=== PATIENT | male | born 1945 | race Caucasian/White ===

== ENCOUNTER 2021-01-15 18:28 | Inpatient (IN) | payer MEDICARE ==
[~2021-01-15] VITALS: Ht 170.2 cm; Wt 81.5 kg
--- NOTE | 2021-01-15 18:51 | NUR ---
PT BIB AMBULANCE FROM [facility] FOR N/V/D. PT REPORTS VOMITING ONCE YESTERDAY AND DIARRHEA FOR ONE WEEK WITH ABOUT 3 EPISODES PER DAY. PT DENEIS PAIN BUT ABDOMEN IS DIFFUSELY TENDER. PT RECEIVED INSULIN AND CEFRIAXONE(2 GRAMS) MANAGER LAUNDRY. BC WERE DONE MANAGER LAUNDRY. PT ON MONITOR.
--- NOTE | 2021-01-15 19:01 | NUR ---
REPORT TO JOHN PERDUE
[2021-01-15 19:41] LABS: PH, VENOUS 7.326 pH (7.320-7.420)
--- NOTE | 2021-01-15 19:48 | NUR ---
Girlfriend/ (Elina Hendricks) [phone]
[2021-01-15 19:51] LABS: ACETONE, SERUM Moderate(40mg/dL) (Negative)
[2021-01-15 19:54] LABS: ALBUMIN 2.1 g/dL (3.4-5.0); ANION GAP 22 mmol/L (5-15); CHLORIDE 86 mmol/L (98-107)
[2021-01-15] MEDS ORDERED: SODIUM CHLORIDE 0.9% 1,000ML IVBOLUS ONE (20:30)
[2021-01-15] MEDS ORDERED: REGULAR INSULIN 100 UNITS in SODIUM CHLORIDE 0.9% 99 ML IV PRN ×2 (20:30→22:00)
--- NOTE | 2021-01-15 20:47 | NUR ---
Insulin drip not initiated yet at this time due to proctocol not being specified by ED MD Cote. I spoke w/ ED MD Cote [id number] and requested protocol specific orders to be put in place. Stated she would talk to Hospitalist and get a protocol placed.
[2021-01-15] MEDS ORDERED: SODIUM BICARBONATE 8.4% 75 MEQ in SODIUM CHLORIDE 0.45% 1,000 ML IV SCH (21:30)
[2021-01-15] MEDS ORDERED: ONDANSETRON 2MG/ML, 2ML IVPush PRN (21:30)
[2021-01-15] MEDS: REGULAR INSULIN 100 UNITS in SODIUM CHLORIDE 0.9% 99 ML IV PRN ×2 (21:37→22:29)
--- NOTE | 2021-01-15 21:48 | NUR ---
Updated Dr. Campbell and hospitalist MD that RN unable to insert Wild Cath as ordered. Pt foreskin red, tender, not able to fully be retracted to visualize urinary meatus. Attempted insertion w/ severe resistance and blood return with minimal clots. No urine assessed in wild cath tube. Verbal instructed by Hospitalist team to cease efforts and stats US abdomen/retropirtoneal would be ordered. Insulin drip started, verified double with RN's.
--- NOTE | 2021-01-15 22:03 | NUR ---
Spoke w/ Dr. Donald at bedside. Updated her once again [id number] that wild cath unable to be inserted due to inability to visualize urinary meatus. I personally showed Dr. Dnoald pts penile anatomy and she concurred at this point, not safe to try to attempt Wild Cath placement. She stated that she would contact Urology. US at bedside, Insulin drip running. Per Dr. Donald, hold Sodium Bicarb fluids at this time, due to risk of volume overloading patient, as pt has full bladder approx 1600ML on US via [email or web address] tech.
--- NOTE | 2021-01-15 22:28 | NUR ---
BGL 550
--- NOTE | 2021-01-15 23:00 | NUR ---
Dr. Richter, Urologist, at bedside attempting to insert urinary catheter.
[2021-01-15] MEDS ORDERED: HEPARIN 5,000 UNITS/ML, 1ML ONE (23:03)
[2021-01-15] MEDS ORDERED: METRONIDAZOLE PMX 500MG/100ML 100 ML ONE (23:03)
[2021-01-15] MEDS: CEFTRIAXONE 1,000 MG in DEXTROSE 5% 50 ML IVPB SCH (23:18)
[2021-01-15] MEDS: HEPARIN 5,000 UNITS/ML, 1ML SQ SCH (23:18)
--- NOTE | 2021-01-15 23:54 | NUR ---
16 F Warren placed by Urologist at this time. 1600Ml cloudy, blood tinged urine returned.
[2021-01-15] MEDS: METRONIDAZOLE PMX 500MG/100ML 100 ML IV SCH (23:59)
--- NOTE | 2021-01-16 00:30 | NUR ---
Most recent BGL 404. Per Dr. Donald, insulin drip to remain at 10.2/hr at this time. Also updated Dr. Donald face to face of pts new onset shivering, tachypenia (RR 26-30) and pts HR of 140-150 when previously throughout shift, 110-120. Pts oral temp 98.2 Per MD, no further interventions at this time, as these are suspected findings due to pts sepsis.
[2021-01-16] MEDS ORDERED: ACETAMINOPHEN 325 MG TABLET ONE (00:57)
[2021-01-16] MEDS: ACETAMINOPHEN 325 MG TABLET PO PRN (01:00)
--- NOTE | 2021-01-16 01:05 | NUR ---
Pt pre medicated w/ Tylenol 650 PO, tolerated well. Pt continues to have shivering, pt putting out more bloody output from wild. Spoke w/ Dr. Donald face to face and requested stat CBC be ordered. Okay for verbal for stat CBC. Ordered at this time. Will continue to monitor pt. Next BGL 0130am. Pt remains on Insulin drip and Bicarb drip/fluids.
--- NOTE | 2021-01-16 01:30 | NUR ---
BGL 325
[2021-01-16 01:34] LABS: MEAN CORPUSCULAR HEMOGLOBIN 29.2 pg (27.5-34.5); MEAN CORPUSCULAR HGB CONC 33.8 g/dL (33.2-36.2); PLATELET COUNT 439 x10^3/uL (130-400); RED BLOOD COUNT 4.46 x10^6/uL (4.38-5.82); RED CELL DISTRIBUTION WIDTH 13.7 % (9.4-14.8)
[2021-01-16 01:36] LABS: MICROSCOPIC INDICATED
--- NOTE | 2021-01-16 01:38 | NUR ---
CBC sent to lab at this time
[2021-01-16 01:40] LABS: SODIUM,URINE RANDOM 85 mmol/L
[2021-01-16 01:49] LABS: TOTAL PROTEIN,URINE RANDOM 2370 mg/dL (0-12)
[2021-01-16 01:55] LABS: CREATININE,URINE RANDOM < 13.00 mg/dL
--- NOTE | 2021-01-16 02:01 | NUR ---
Pt had extremely large bowle movement, incontinent of stool. Diarrhea, mucousy, dark brown. Pt more lethargic, more altered at this point. Hard to arouse, able to maintain however, however mental status acutely worsening. Will update Hospitalist MD [id number]
[2021-01-16 02:03] LABS: BAND#(MANUAL) 2.56 x10^3/uL; BANDS%(MANUAL) 12 % (0-7); LYMPH#(MANUAL) 1.07 x10^3/uL (1-3.4); LYMPHS% (MANUAL) 5 % (22-44); METAMYELOCYTES# (MANUAL) 0.85 x10^3/uL (0-0); METAMYELOCYTES% (MANUAL) 4 % (0-1); MONOS#(MANUAL) 2.13 x10^3/uL (0.3-2.7); MONOS% (MANUAL) 10 % (2-9); MYELOCYTES# (MANUAL) 0.21 x10^3/uL (0-0); MYELOCYTES% (MANUAL) 1 % (0-0); SEG#(MANUAL) 14.48 x10^3/uL (1.8-6.8); SEGS% (MANUAL) 68 % (42-75)
[2021-01-16 02:04] LABS: <PLATELET ESTIMATE> INCREASED; CRENATED 1+; ECHINOCYTES 1+; LARGE PLATELETS 1+; PMNS WITH VACUOLES 1+; TOXIC GRAN 1+
[2021-01-16 02:05] LABS: ANISOCYTOSIS 1+
--- NOTE | 2021-01-16 02:09 | NUR ---
Called Dr. Forrester emergently for pt becoming more altered and w/ SNP <90 at this time. 1L nSS hung at this time, Dr. Das in agreement with this. States he will be down to see the pt shortly.
--- NOTE | 2021-01-16 02:14 | NUR ---
Dr. Das to bedside. No IV pressors at this time. 1L nSS to be hung wide open, Bicarb drip increased from 125 to 200/hr per MD Das. Cont to monitor BP in response to IV fluids. Will reassess the need for Central Line/Vasopressors shortly.
--- NOTE | 2021-01-16 02:18 | NUR ---
Called lab, spoke w/ Amanda, she will add on the ordered labs.
[2021-01-16] MEDS ORDERED: SODIUM CHLORIDE 0.9% 1,000ML IVBOLUS ONE (02:30)
--- NOTE | 2021-01-16 02:36 | NUR ---
Called and left Dr. Forrester message regarding pts most recent BGL of 260 while on Insulin drip at 10.2ml/hr. Questioning whether or not to drop the rate. Also advised Dr. Das that pts BP is responding well to IVF at this time, and that his SBP >90 at this point[address] Also made Dr. Das aware that I ordered the labs that he verbally asked me to order at bedside.
--- NOTE | 2021-01-16 02:40 | NUR ---
Per Dr. Forrester, insulin drip to be maintained at this point in time.
--- NOTE | 2021-01-16 03:11 | NUR ---
TASK RN: PT REPOSITIONED TO COMFORT LIGHTS DIMMED. PT RESTING ON BENNYRRADHA NADN NO FURTHER NEEDS
[2021-01-16 03:13] LABS: ANION GAP 15 mmol/L (5-15); CHLORIDE 92 mmol/L (98-107); CREATININE 7.15 mg/dL (0.7-1.3)
[2021-01-16] MEDS ORDERED: SODIUM BICARBONATE 8.4% 150 MEQ in DEXTROSE 5% 1,000 ML IV SCH (03:30)
[2021-01-16 03:38] LABS: CALCIUM 5.6 mg/dL (8.5-10.1)
--- NOTE | 2021-01-16 03:40 | NUR ---
Critical labs communicated to this RN Potassium 2.3 Calcium 5.6
--- NOTE | 2021-01-16 03:45 | NUR ---
Left Dr. Starr voicemail regardin critical lab results and most recent glucose
--- NOTE | 2021-01-16 03:47 | NUR ---
Per Dr. Das, Insulin drip to be cut in half at this time until D5 fluids arrive from Pharmacy.
[2021-01-16] MEDS ORDERED: SODIUM BICARBONATE 8.4% 150 MEQ, POTASSIUM CHLORIDE 40 MEQ in DEXTROSE 5% 1,000 ML IV SCH (04:00)
[2021-01-16] MEDS ORDERED: CALCIUM GLUCONATE 9.2 MEQ in SODIUM CHLORIDE 0.9% 100 ML IV ONE (04:00)
[2021-01-16 04:19] LABS: MEAN CORPUSCULAR HEMOGLOBIN 28.5 pg (27.5-34.5); MEAN CORPUSCULAR HGB CONC 33.7 g/dL (33.2-36.2); MEAN PLATELET VOLUME 8.7 fL (7.4-10.4); PLATELET COUNT 502 x10^3/uL (130-400); RED BLOOD COUNT 4.21 x10^6/uL (4.38-5.82); RED CELL DISTRIBUTION WIDTH 13.9 % (9.4-14.8)
[2021-01-16 04:26] LABS: ALANINE AMINOTRANSFERASE 11 U/L (12-78); ALBUMIN 1.7 g/dL (3.4-5.0); ANION GAP 20 mmol/L (5-15); CALCIUM 7.7 mg/dL (8.5-10.1); CHLORIDE 98 mmol/L (98-107); CREATININE 9.97 mg/dL (0.7-1.3)
[2021-01-16] MEDS: NOREPINEPHRINE 8 MG in SODIUM CHLORIDE 0.9% 242 ML IV PRN ×3 (04:32→21:57)
--- NOTE | 2021-01-16 04:35 | NUR ---
Updated Dr. Das that peripheral Levo started at this time due to pts continued hypotension. SBP <[address] Das coming to bedside and will advise on what to do with insulin drip. pt remains on insulin drip at 5.1ml/hr at this time. pt additionally receiving Sodium bicarb/potassium in D5 at 175/hr per order and calcium gluconante. Supplies for central line set up at bedside at this time, per Dr. Das. Will assist in central line placement upon arrival.
[2021-01-16 04:37] LABS: ALKALINE PHOSPHATASE 83 U/L (45-117); BILIRUBIN,TOTAL 0.2 mg/dL (0.2-1.0); TOTAL PROTEIN 5.8 g/dL (6.4-8.2)
[2021-01-16 04:48] LABS: ANISOCYTOSIS 1+; BAND#(MANUAL) 7.41 x10^3/uL; BANDS%(MANUAL) 26 % (0-7); LYMPH#(MANUAL) 0.29 x10^3/uL (1-3.4); LYMPHS% (MANUAL) 1 % (22-44); METAMYELOCYTES# (MANUAL) 0.86 x10^3/uL (0-0); METAMYELOCYTES% (MANUAL) 3 % (0-1); MONOS#(MANUAL) 3.14 x10^3/uL (0.3-2.7); MONOS% (MANUAL) 11 % (2-9); MYELOCYTES# (MANUAL) 0.29 x10^3/uL (0-0); MYELOCYTES% (MANUAL) 1 % (0-0); SEG#(MANUAL) 16.53 x10^3/uL (1.8-6.8); SEGS% (MANUAL) 58 % (42-75)
[2021-01-16 04:49] LABS: ECHINOCYTES 1+
[2021-01-16 04:50] LABS: <PLATELET ESTIMATE> INCREASED; LARGE PLATELETS 1+; PMNS WITH VACUOLES 1+
--- NOTE | 2021-01-16 05:10 | NUR ---
Successful placement of RIJ Triple Lumen CVC by Dr. Das. Bllod return noted of all 3 lines, flushes well w/o difficulty
[2021-01-16] MEDS ORDERED: DEXTROSE 10%, 1,000ML IVPB SCH (05:30)
--- NOTE | 2021-01-16 05:38 | NUR ---
Per Dr. Das, Insulin drip to remain at 5.1ml/hr. D10 that is ordered is suppose to be started at this time w/goal BGL 180-200 per .
[2021-01-16] MEDS ORDERED: HEPARIN 5,000 UNITS/ML, 1ML ONE (05:43)
[2021-01-16] MEDS ORDERED: METRONIDAZOLE PMX 500MG/100ML 100 ML ONE (05:43)
[2021-01-16] MEDS: HEPARIN 5,000 UNITS/ML, 1ML SQ SCH ×3 (05:48→21:53)
[2021-01-16] MEDS: METRONIDAZOLE PMX 500MG/100ML 100 ML IV SCH ×3 (05:48→21:53)
[2021-01-16] MEDS ORDERED: DEXTROSE 10% 1,000 ML IV SCH ×2 (06:00)
--- NOTE | 2021-01-16 06:21 | NUR ---
Pt resting at this time, drips maintained at current rate reflected in MAR. SBP >90 on Levophed through pts central line. Respirations even, unlabored, on supplemental O2 via NC at 2lpm for comfort measures and not hypoxia. Pt wild catheter draining well. Outputs are up to date and charted accordingly. Next BGL at 0630. Pt remains on insulin drip, bicarb w/ electrolytes drip, D10 drip. Tolerating well. Will continue to monitor.
[2021-01-16] MEDS ORDERED: POTASSIUM CHLORIDE 40 MEQ in SODIUM CHLORIDE 0.9% 100 ML IV ONE ×2 (07:00→23:30)
--- NOTE | 2021-01-16 07:04 | NUR ---
Report given to NETTE Marrufo, no further questions at this time. All drip medications gone over face to face at bedside. No questions.
[2021-01-16] MEDS: REGULAR INSULIN 100 UNITS in SODIUM CHLORIDE 0.9% 99 ML IV PRN ×2 (08:32→21:54)
--- NOTE | 2021-01-16 08:38 | NUR ---
SPOKE WITH UROLOGIST RE: RAMON AND DR MAHAN'S REQUEST FOR 3WAY BALDDER IRRIGATION. UROLOGY DOES NOT WANT TO HAVE A 3WAY BOWLES PLACED. UROLOGY REQUESTS THAT NURSING HAND IRRIGATE BOWLES NEEDED.
--- NOTE | 2021-01-16 08:40 | NUR ---
LATE ENTRY FOR 714, DR MAHAN AT BEDSIDE, POC DISCUSSED AND QUESTIONS ANSWERED. DR MAHAN REQUESTED NURSING TO PLACE 3WAY BOWLES. I EXPLAINED THAT UROLOGY PLACED THE CURRENT BOWLES. DR MAHAN REQUESTED NURSING TO CONTACT UROLOGY TO DISCUSS 3 WAY BOWLES IRRIGATION.
--- NOTE | 2021-01-16 08:49 | NUR ---
DR SALGUERO PAGED TO DISCUSS D10 INFUSION RATE
--- NOTE | 2021-01-16 10:33 | NUR ---
BLADDER HAND IRRIGATED USING NS. TOTAL OF 2.5 LITERS WAS USED, 70ML AT A TIME WITH EQUAL AMT OF FLUID WITHDRAWN. PT TOLLERATED WELL. MUTLIPLE LARGE CLOTS REMOVED, IRRIGATION CONTINUED UNTIL DRAINED WAS LIGHT PINK AND CLEAR OF ANY CLOTS. BOWLES THEN PLCED TO D/D +350ML OF PINK UOP NOTED.
--- NOTE | 2021-01-16 10:39 | NUR ---
LATE ENTRY FOR 829, COMPLETE LINEN CHANGE AND SKIN CARE PERFORMED. PT TOLLERATED WELL.
--- NOTE | 2021-01-16 10:40 | NUR ---
PT TOLLERATING SMALL BITS OF ICE CHIPS. LIP MOISTURIZER APPLIED.
--- NOTE | 2021-01-16 10:46 | NUR ---
DR SALGUERO HAS NOT RTD EARLIER PAGE 2ND PAGE PLACED TO DR SALGUERO.
--- NOTE | 2021-01-16 10:54 | NUR ---
PER PHONE CONVERSATION WITH DR SALGUERO. STOP THE D10 INFUSION AND BICARB GTT SHOULD RUN AT 125ML/HR. VERBAL READ BACK.
[2021-01-16 12:07] LABS: ANION GAP 14 mmol/L (5-15); CHLORIDE 102 mmol/L (98-107); CREATININE 8.29 mg/dL (0.7-1.3)
[2021-01-16] MEDS ORDERED: TAMSULOSIN 0.4 MG CAP.ER.24H PO ONE (14:00)
[2021-01-16 18:31] LABS: ANION GAP 10 mmol/L (5-15); CALCIUM 8.3 mg/dL (8.5-10.1); CHLORIDE 105 mmol/L (98-107); CREATININE 5.54 mg/dL (0.7-1.3)
[2021-01-16] MEDS ORDERED: POTASSIUM CHLORIDE 20 MEQ TAB.ER.PRT PO ONE (19:30)
[2021-01-16 22:28] LABS: ANION GAP 7 mmol/L (5-15); CALCIUM 8.1 mg/dL (8.5-10.1); CHLORIDE 107 mmol/L (98-107)
[2021-01-16] MEDS: CEFTRIAXONE 1,000 MG in DEXTROSE 5% 50 ML IVPB SCH (23:17)
[2021-01-17 03:25] LABS: BASOPHILS % (AUTO) 0 % (0-1); EOSINOPHILS % (AUTO) 0 % (1-7); LYMPHOCYTES % (AUTO) 7 % (22-44); MEAN CORPUSCULAR HEMOGLOBIN 29.2 pg (27.5-34.5); MEAN CORPUSCULAR HGB CONC 34.8 g/dL (33.2-36.2); MEAN PLATELET VOLUME 8.3 fL (7.4-10.4); MONOCYTES % (AUTO) 11 % (2-9); NEUTROPHILS % (AUTO) 81 % (42-75); PLATELET COUNT 366 x10^3/uL (130-400); RED BLOOD COUNT 3.48 x10^6/uL (4.38-5.82); RED CELL DISTRIBUTION WIDTH 13.8 % (9.4-14.8)
[2021-01-17 03:33] LABS: ANION GAP 4 mmol/L (5-15); CALCIUM 8.2 mg/dL (8.5-10.1); CHLORIDE 110 mmol/L (98-107); CREATININE 3.32 mg/dL (0.7-1.3)
[2021-01-17] MEDS ORDERED: SODIUM BICARBONATE 8.4% 150 MEQ, POTASSIUM CHLORIDE 40 MEQ in DEXTROSE 5% 1,000 ML IV SCH ×3 (04:00→04:30)
[2021-01-17] MEDS: REGULAR INSULIN 100 UNITS in SODIUM CHLORIDE 0.9% 99 ML IV PRN (05:07)
[2021-01-17] MEDS ORDERED: POTASSIUM CHLORIDE 20 MEQ TAB.ER.PRT PO ONE (05:30)
[2021-01-17] MEDS: HEPARIN 5,000 UNITS/ML, 1ML SQ SCH ×3 (05:41→21:45)
[2021-01-17] MEDS: METRONIDAZOLE PMX 500MG/100ML 100 ML IV SCH ×3 (05:41→21:45)
[2021-01-17] MEDS: SODIUM CHLORIDE 0.9% 1,000 ML IV SCH ×2 (07:00→20:38)
[2021-01-17] MEDS: INSULIN LISPRO 100 UNITS/ML, PEN SQ-INSULIN SCH ×4 (08:10→20:38)
[2021-01-17] MEDS: INSULIN GLARGINE 100 UNITS/ML, PEN SQ-INSULIN SCH ×2 (08:10→20:39)
[2021-01-17] MEDS: POTASSIUM CHLORIDE 20 MEQ TAB.ER.PRT PO SCH ×2 (08:10→16:45)
[2021-01-17] MEDS: TAMSULOSIN 0.4 MG CAP.ER.24H PO SCH (08:11)
[2021-01-17 18:52] VITALS: BP 97/60
[2021-01-17] MEDS: CEFTRIAXONE 1,000 MG in DEXTROSE 5% 50 ML IVPB SCH (22:46)
[2021-01-18 01:20] VITALS: BP 145/83
[2021-01-18 04:56] LABS: BASOPHILS % (AUTO) 0 % (0-1); EOSINOPHILS % (AUTO) 0 % (1-7); LYMPHOCYTES % (AUTO) 15 % (22-44); MEAN CORPUSCULAR HGB CONC 33.9 g/dL (33.2-36.2); MEAN PLATELET VOLUME 8.4 fL (7.4-10.4); MONOCYTES % (AUTO) 9 % (2-9); NEUTROPHILS % (AUTO) 76 % (42-75); PLATELET COUNT 343 x10^3/uL (130-400); RED BLOOD COUNT 3.54 x10^6/uL (4.38-5.82); RED CELL DISTRIBUTION WIDTH 13.7 % (9.4-14.8)
[2021-01-18 05:07] LABS: ALBUMIN 1.6 g/dL (3.4-5.0); CALCIUM 7.9 mg/dL (8.5-10.1); CHLORIDE 106 mmol/L (98-107)
[2021-01-18 05:12] LABS: ALANINE AMINOTRANSFERASE 14 U/L (12-78); ALKALINE PHOSPHATASE 69 U/L (45-117); ANION GAP 7 mmol/L (5-15); BILIRUBIN,TOTAL 0.2 mg/dL (0.2-1.0); CREATININE 1.27 mg/dL (0.7-1.3); TOTAL PROTEIN 5.7 g/dL (6.4-8.2)
[2021-01-18] MEDS: HEPARIN 5,000 UNITS/ML, 1ML SQ SCH ×2 (05:39→13:38)
[2021-01-18] MEDS: METRONIDAZOLE PMX 500MG/100ML 100 ML IV SCH ×3 (05:39→22:11)
[2021-01-18] MEDS: INSULIN GLARGINE 100 UNITS/ML, PEN SQ-INSULIN SCH ×2 (07:45→20:22)
[2021-01-18] MEDS: TAMSULOSIN 0.4 MG CAP.ER.24H PO SCH (07:45)
[2021-01-18] MEDS: INSULIN LISPRO 100 UNITS/ML, PEN SQ-INSULIN SCH ×4 (07:46→20:21)
[2021-01-18 08:41] VITALS: BP 173/94
[2021-01-18] MEDS: SODIUM CHLORIDE 0.9% 1,000 ML IV SCH (09:16)
[2021-01-18 13:17] VITALS: BP 152/80
[2021-01-18] MEDS: LACTATED RINGERS 1,000 ML IV SCH ×2 (13:34→23:21)
[2021-01-18 19:21] VITALS: BP 157/83
[2021-01-18] MEDS: CEFTRIAXONE 1,000 MG in DEXTROSE 5% 50 ML IVPB SCH (23:20)
[2021-01-19 00:14] VITALS: BP 136/73
[2021-01-19 05:13] LABS: MEAN CORPUSCULAR HGB CONC 34.1 g/dL (33.2-36.2); MEAN PLATELET VOLUME 8.2 fL (7.4-10.4); PLATELET COUNT 390 x10^3/uL (130-400); RED BLOOD COUNT 4.01 x10^6/uL (4.38-5.82); RED CELL DISTRIBUTION WIDTH 13.4 % (9.4-14.8)
[2021-01-19 05:38] LABS: ANION GAP 7 mmol/L (5-15); CALCIUM 7.7 mg/dL (8.5-10.1); CHLORIDE 103 mmol/L (98-107); CREATININE 0.97 mg/dL (0.7-1.3)
[2021-01-19 05:46] LABS: BANDS%(MANUAL) 4 % (0-7); EOS% (MANUAL) 1 % (1-7); LYMPH#(MANUAL) 3.58 x10^3/uL (1-3.4); LYMPHS% (MANUAL) 18 % (22-44); METAMYELOCYTES% (MANUAL) 1 % (0-1); MONOS#(MANUAL) 1.39 x10^3/uL (0.3-2.7); MONOS% (MANUAL) 7 % (2-9); SEG#(MANUAL) 13.73 x10^3/uL (1.8-6.8); SEGS% (MANUAL) 69 % (42-75)
[2021-01-19 05:47] LABS: ANISOCYTOSIS 1+; PMNS WITH VACUOLES 1+; POLYCHROMASIA 1+
[2021-01-19 05:48] LABS: <PLATELET ESTIMATE> ADEQUATE; LARGE PLATELETS 1+
[2021-01-19] MEDS: METRONIDAZOLE PMX 500MG/100ML 100 ML IV SCH ×3 (06:03→22:08)
[2021-01-19 07:01] VITALS: BP 130/70
[2021-01-19] MEDS: TAMSULOSIN 0.4 MG CAP.ER.24H PO SCH (07:33)
[2021-01-19] MEDS: INSULIN LISPRO 100 UNITS/ML, PEN SQ-INSULIN SCH ×4 (07:34→20:19)
[2021-01-19] MEDS: INSULIN GLARGINE 100 UNITS/ML, PEN SQ-INSULIN SCH ×2 (07:35→20:20)
[2021-01-19] MEDS: LACTATED RINGERS 1,000 ML IV SCH ×2 (11:05→20:20)
[2021-01-19 13:04] VITALS: BP 110/68
[2021-01-19 21:05] VITALS: BP 130/78
[2021-01-19] MEDS: CEFTRIAXONE 1,000 MG in DEXTROSE 5% 50 ML IVPB SCH (23:08)
[2021-01-20 00:15] VITALS: BP 126/77
[2021-01-20 05:41] LABS: BASOPHILS % (AUTO) 0 % (0-1); EOSINOPHILS % (AUTO) 2 % (1-7); LYMPHOCYTES % (AUTO) 17 % (22-44); MEAN CORPUSCULAR HEMOGLOBIN 29.2 pg (27.5-34.5); MEAN CORPUSCULAR HGB CONC 34.3 g/dL (33.2-36.2); MEAN PLATELET VOLUME 8.9 fL (7.4-10.4); MONOCYTES % (AUTO) 9 % (2-9); NEUTROPHILS % (AUTO) 72 % (42-75); PLATELET COUNT 302 x10^3/uL (130-400); RED BLOOD COUNT 3.53 x10^6/uL (4.38-5.82); RED CELL DISTRIBUTION WIDTH 13.4 % (9.4-14.8)
[2021-01-20 05:48] LABS: CHLORIDE 104 mmol/L (98-107)
[2021-01-20 06:02] LABS: ANION GAP 6 mmol/L (5-15); CALCIUM 7.6 mg/dL (8.5-10.1); CREATININE 0.88 mg/dL (0.7-1.3)
[2021-01-20] MEDS: METRONIDAZOLE PMX 500MG/100ML 100 ML IV SCH ×3 (06:11→22:11)
[2021-01-20] MEDS: INSULIN LISPRO 100 UNITS/ML, PEN SQ-INSULIN SCH ×4 (07:00→20:15)
[2021-01-20 07:27] VITALS: BP 175/93
[2021-01-20] MEDS ORDERED: POTASSIUM CHLORIDE 20 MEQ PACKET PO ONE (07:30)
[2021-01-20 08:33] VITALS: BP 167/81
[2021-01-20] MEDS ORDERED: OMNIPAQUE 350 MG/ML, 150 ML BOTTLE ONE (10:25)
[2021-01-20] MEDS: INSULIN GLARGINE 100 UNITS/ML, PEN SQ-INSULIN SCH ×2 (10:31→20:16)
[2021-01-20] MEDS: TAMSULOSIN 0.4 MG CAP.ER.24H PO SCH (10:31)
[2021-01-20] MEDS: LACTATED RINGERS 1,000 ML IV SCH ×2 (10:32→20:09)
[2021-01-20 12:47] VITALS: BP 181/96
[2021-01-20 18:48] VITALS: BP_SYST 174; BP_SYST 180; BP_DIAS 100; BP_DIAS 95
[2021-01-20] MEDS: CEFTRIAXONE 1,000 MG in DEXTROSE 5% 50 ML IVPB SCH (23:27)
[2021-01-21] VITALS (7 sets, daily range): BP systolic 91–219; BP diastolic 52–117
[2021-01-21] MEDS ORDERED: LABETALOL 5MG/ML, 20ML IVPush ONE (01:30)
[2021-01-21] MEDS: LISINOPRIL 10 MG TABLET PO SCH ×2 (01:35→09:06)
[2021-01-21] MEDS: AMLODIPINE 5 MG TABLET PO SCH ×2 (01:35→09:05)
[2021-01-21] MEDS ORDERED: LABETALOL 5MG/ML, 20ML IVPush PRN (03:30)
[2021-01-21] MEDS: METRONIDAZOLE PMX 500MG/100ML 100 ML IV SCH ×3 (06:14→21:34)
[2021-01-21 06:31] LABS: MEAN CORPUSCULAR HEMOGLOBIN 28.8 pg (27.5-34.5); MEAN CORPUSCULAR HGB CONC 33.4 g/dL (33.2-36.2); MEAN PLATELET VOLUME 9.1 fL (7.4-10.4); PLATELET COUNT 392 x10^3/uL (130-400); RED BLOOD COUNT 4.06 x10^6/uL (4.38-5.82); RED CELL DISTRIBUTION WIDTH 13.4 % (9.4-14.8)
[2021-01-21 06:40] LABS: ANION GAP 10 mmol/L (5-15); CALCIUM 8.1 mg/dL (8.5-10.1); CHLORIDE 100 mmol/L (98-107); CREATININE 0.96 mg/dL (0.7-1.3)
[2021-01-21 07:49] LABS: <PLATELET ESTIMATE> ADEQUATE; <PLT MORPHOLOGY> NORMAL PLT MORPH; ANISOCYTOSIS 1+; LYMPH#(MANUAL) 2.23 x10^3/uL (1-3.4); LYMPHS% (MANUAL) 9 % (22-44); MONOS#(MANUAL) 2.23 x10^3/uL (0.3-2.7); MONOS% (MANUAL) 9 % (2-9); POLYCHROMASIA 1+; SEG#(MANUAL) 20.34 x10^3/uL (1.8-6.8); SEGS% (MANUAL) 82 % (42-75)
[2021-01-21] MEDS: INSULIN GLARGINE 100 UNITS/ML, PEN SQ-INSULIN SCH ×2 (07:59→20:35)
[2021-01-21] MEDS: INSULIN LISPRO 100 UNITS/ML, PEN SQ-INSULIN SCH ×4 (08:00→20:34)
[2021-01-21] MEDS: TAMSULOSIN 0.4 MG CAP.ER.24H PO SCH (09:06)
[2021-01-21] MEDS ORDERED: MAGNESIUM SULFATE PMX 2GM/50ML 50 ML IV ONE (10:00)
[2021-01-21] MEDS ORDERED: POTASSIUM CHLORIDE 20 MEQ TAB.ER.PRT PO ONE (10:00)
[2021-01-21] MEDS: POTASSIUM CHLORIDE 20 MEQ in LACTATED RINGERS 1,000 ML IV SCH (13:07)
[2021-01-21] MEDS: CEFTRIAXONE 1,000 MG in DEXTROSE 5% 50 ML IVPB SCH (22:53)
[2021-01-22 00:26] VITALS: BP 105/68
[2021-01-22] MEDS: POTASSIUM CHLORIDE 20 MEQ in LACTATED RINGERS 1,000 ML IV SCH (03:06)
[2021-01-22] MEDS: METRONIDAZOLE PMX 500MG/100ML 100 ML IV SCH ×3 (05:30→21:47)
[2021-01-22 07:32] VITALS: BP 138/79
[2021-01-22] MEDS: AMLODIPINE 5 MG TABLET PO SCH (08:06)
[2021-01-22] MEDS: INSULIN LISPRO 100 UNITS/ML, PEN SQ-INSULIN SCH ×4 (08:06→20:47)
[2021-01-22] MEDS: TAMSULOSIN 0.4 MG CAP.ER.24H PO SCH (08:06)
[2021-01-22] MEDS: INSULIN GLARGINE 100 UNITS/ML, PEN SQ-INSULIN SCH ×2 (08:06→20:47)
[2021-01-22] MEDS: LISINOPRIL 10 MG TABLET PO SCH (08:06)
[2021-01-22 08:21] LABS: BASOPHILS % (AUTO) 1 % (0-1); EOSINOPHILS % (AUTO) 2 % (1-7); LYMPHOCYTES % (AUTO) 16 % (22-44); MEAN CORPUSCULAR HEMOGLOBIN 28.7 pg (27.5-34.5); MEAN CORPUSCULAR HGB CONC 32.9 g/dL (33.2-36.2); MEAN PLATELET VOLUME 8.6 fL (7.4-10.4); MONOCYTES % (AUTO) 8 % (2-9); NEUTROPHILS % (AUTO) 74 % (42-75); PLATELET COUNT 349 x10^3/uL (130-400); RED BLOOD COUNT 4.04 x10^6/uL (4.38-5.82); RED CELL DISTRIBUTION WIDTH 13.6 % (9.4-14.8)
[2021-01-22 08:30] LABS: ANION GAP 7 mmol/L (5-15); CHLORIDE 101 mmol/L (98-107)
[2021-01-22 08:33] LABS: CREATININE 0.87 mg/dL (0.7-1.3)
[2021-01-22] MEDS ORDERED: POTASSIUM CHLORIDE 20 MEQ TAB.ER.PRT PO ONE (10:00)
[2021-01-22] MEDS ORDERED: MAGNESIUM SULFATE PMX 2GM/50ML 50 ML IV ONE (10:00)
[2021-01-22 13:35] VITALS: BP 104/68
[2021-01-22 19:19] VITALS: BP 131/74
[2021-01-22] MEDS: CEFTRIAXONE 1,000 MG in DEXTROSE 5% 50 ML IVPB SCH (23:04)
[2021-01-23 01:35] VITALS: BP 159/92
[2021-01-23] MEDS: METRONIDAZOLE PMX 500MG/100ML 100 ML IV SCH ×2 (05:31→14:27)
[2021-01-23 05:41] LABS: BASOPHILS % (AUTO) 0 % (0-1); EOSINOPHILS % (AUTO) 1 % (1-7); LYMPHOCYTES % (AUTO) 14 % (22-44); MEAN CORPUSCULAR HEMOGLOBIN 29.1 pg (27.5-34.5); MEAN CORPUSCULAR HGB CONC 33.2 g/dL (33.2-36.2); MEAN PLATELET VOLUME 8.8 fL (7.4-10.4); MONOCYTES % (AUTO) 7 % (2-9); NEUTROPHILS % (AUTO) 78 % (42-75); PLATELET COUNT 369 x10^3/uL (130-400); RED BLOOD COUNT 3.89 x10^6/uL (4.38-5.82); RED CELL DISTRIBUTION WIDTH 14.1 % (9.4-14.8)
[2021-01-23 05:42] LABS: ALBUMIN 2.1 g/dL (3.4-5.0); ANION GAP 8 mmol/L (5-15); CALCIUM 7.6 mg/dL (8.5-10.1); CHLORIDE 103 mmol/L (98-107)
[2021-01-23 05:47] LABS: ALANINE AMINOTRANSFERASE 14 U/L (12-78); ALKALINE PHOSPHATASE 84 U/L (45-117); BILIRUBIN,TOTAL 0.3 mg/dL (0.2-1.0); CREATININE 0.84 mg/dL (0.7-1.3); TOTAL PROTEIN 6.7 g/dL (6.4-8.2)
[2021-01-23 06:43] VITALS: BP 155/99
[2021-01-23] MEDS: INSULIN LISPRO 100 UNITS/ML, PEN SQ-INSULIN SCH ×4 (07:00→20:55)
[2021-01-23 08:20] VITALS: BP 149/90
[2021-01-23] MEDS: AMLODIPINE 5 MG TABLET PO SCH (08:22)
[2021-01-23] MEDS: LISINOPRIL 10 MG TABLET PO SCH (08:22)
[2021-01-23] MEDS: TAMSULOSIN 0.4 MG CAP.ER.24H PO SCH (08:22)
[2021-01-23] MEDS: INSULIN GLARGINE 100 UNITS/ML, PEN SQ-INSULIN SCH ×2 (08:23→20:54)
[2021-01-23 12:26] VITALS: BP 142/85
[2021-01-23 20:47] VITALS: BP 139/86
[2021-01-23] MEDS: CEFTRIAXONE 1,000 MG in DEXTROSE 5% 50 ML IVPB SCH (23:08)
[2021-01-24 01:09] VITALS: BP 147/90
[2021-01-24 07:01] VITALS: BP 123/94
[2021-01-24] MEDS: TAMSULOSIN 0.4 MG CAP.ER.24H PO SCH (08:11)
[2021-01-24] MEDS: AMLODIPINE 5 MG TABLET PO SCH (08:11)
[2021-01-24] MEDS: LISINOPRIL 10 MG TABLET PO SCH (08:12)
[2021-01-24] MEDS: INSULIN GLARGINE 100 UNITS/ML, PEN SQ-INSULIN SCH ×2 (08:13→22:29)
[2021-01-24] MEDS: INSULIN LISPRO 100 UNITS/ML, PEN SQ-INSULIN SCH ×4 (08:13→22:29)
[2021-01-24] MEDS ORDERED: METOPROLOL SUCCINATE 50 MG TAB.ER.24H PO SCH (09:30)
[2021-01-24] MEDS ORDERED: INSULIN LISPRO 100 UNITS/ML, PEN SQ-INSULIN ONE (11:00)
[2021-01-24 13:05] VITALS: BP 113/75
[2021-01-24] MEDS ORDERED: INSULIN LISPRO 100 UNIT/ML, 3ML VIAL SQ-INSULIN ONE (16:30)
[2021-01-24] MEDS ORDERED: LACTATED RINGERS 1,000 ML IVBOLUS ONE (18:00)
[2021-01-24 18:01] LABS: MEAN CORPUSCULAR HEMOGLOBIN 29.1 pg (27.5-34.5); MEAN CORPUSCULAR HGB CONC 32.6 g/dL (33.2-36.2); MEAN PLATELET VOLUME 9.2 fL (7.4-10.4); PLATELET COUNT 602 x10^3/uL (130-400); RED BLOOD COUNT 4.51 x10^6/uL (4.38-5.82); RED CELL DISTRIBUTION WIDTH 14.8 % (9.4-14.8)
[2021-01-24 18:16] VITALS: BP 110/76
[2021-01-24 18:17] LABS: ALANINE AMINOTRANSFERASE 18 U/L (12-78); ALBUMIN 2.6 g/dL (3.4-5.0); ANION GAP 12 mmol/L (5-15); CALCIUM 8.9 mg/dL (8.5-10.1); CHLORIDE 96 mmol/L (98-107); CREATININE 1.86 mg/dL (0.7-1.3)
[2021-01-24 18:23] LABS: BAND#(MANUAL) 3.76 x10^3/uL; BANDS%(MANUAL) 10 % (0-7); BASOS#(MANUAL) 0.38 x10^3/uL (0-0.1); BASOS% (MANUAL) 1 % (0-1); LYMPH#(MANUAL) 2.63 x10^3/uL (1-3.4); LYMPHS% (MANUAL) 7 % (22-44); METAMYELOCYTES# (MANUAL) 0.38 x10^3/uL (0-0); METAMYELOCYTES% (MANUAL) 1 % (0-1); MONOS#(MANUAL) 1.13 x10^3/uL (0.3-2.7); MONOS% (MANUAL) 3 % (2-9); SEG#(MANUAL) 29.33 x10^3/uL (1.8-6.8); SEGS% (MANUAL) 78 % (42-75)
[2021-01-24 18:26] LABS: <PLATELET ESTIMATE> INCREASED; ANISOCYTOSIS 1+; LARGE PLATELETS 1+; POLYCHROMASIA 1+
[2021-01-24 18:27] LABS: TOXIC GRAN 1+
[2021-01-24 18:32] LABS: ALKALINE PHOSPHATASE 145 U/L (45-117); BILIRUBIN,TOTAL 0.5 mg/dL (0.2-1.0); TOTAL PROTEIN 8.2 g/dL (6.4-8.2)
[2021-01-24 18:33] LABS: TROPONIN I < 0.015 ng/mL (0.000-0.045)
[2021-01-24] MEDS: MEROPENEM 1 GM in SODIUM CHLORIDE 0.9% 100 ML IV SCH (18:49)
[2021-01-24] MEDS ORDERED: GADOTERATE 10 MMOL/20ML SYR ONE (21:24)
[2021-01-24 22:14] LABS: TROPONIN I < 0.015 ng/mL (0.000-0.045)
[2021-01-24 22:32] VITALS: BP 93/60
[2021-01-25 00:07] VITALS: BP 92/55
[2021-01-25 01:14] VITALS: BP 100/65
[2021-01-25] MEDS: MEROPENEM 1 GM in SODIUM CHLORIDE 0.9% 100 ML IV SCH ×2 (02:29→10:08)
[2021-01-25 06:07] LABS: MEAN CORPUSCULAR HEMOGLOBIN 29.4 pg (27.5-34.5); MEAN CORPUSCULAR HGB CONC 33.5 g/dL (33.2-36.2); MEAN PLATELET VOLUME 8.9 fL (7.4-10.4); PLATELET COUNT 485 x10^3/uL (130-400); RED BLOOD COUNT 4.27 x10^6/uL (4.38-5.82); RED CELL DISTRIBUTION WIDTH 14.8 % (9.4-14.8)
[2021-01-25 06:08] LABS: HCT (SEDRATE) 38.1 % (39.2-51.8)
[2021-01-25 06:17] LABS: ALBUMIN 2.4 g/dL (3.4-5.0); ANION GAP 9 mmol/L (5-15); CALCIUM 8.1 mg/dL (8.5-10.1); CHLORIDE 98 mmol/L (98-107)
[2021-01-25 06:22] LABS: ALANINE AMINOTRANSFERASE 15 U/L (12-78); ALKALINE PHOSPHATASE 78 U/L (45-117); BILIRUBIN,TOTAL 0.6 mg/dL (0.2-1.0); CREATININE 2.18 mg/dL (0.7-1.3); TOTAL PROTEIN 7.3 g/dL (6.4-8.2)
[2021-01-25 06:32] LABS: BANDS%(MANUAL) 3 % (0-7); EOS#(MANUAL) 0.27 x10^3/uL (0.0-0.4); EOS% (MANUAL) 1 % (1-7); LYMPH#(MANUAL) 3.18 x10^3/uL (1-3.4); LYMPHS% (MANUAL) 12 % (22-44); MONOS#(MANUAL) 2.92 x10^3/uL (0.3-2.7); MONOS% (MANUAL) 11 % (2-9); SEG#(MANUAL) 19.35 x10^3/uL (1.8-6.8); SEGS% (MANUAL) 73 % (42-75)
[2021-01-25 06:33] LABS: <PLATELET ESTIMATE> INCREASED; ANISOCYTOSIS 1+; LARGE PLATELETS 1+; POLYCHROMASIA 1+
[2021-01-25] MEDS: INSULIN LISPRO 100 UNITS/ML, PEN SQ-INSULIN SCH ×4 (07:53→21:12)
[2021-01-25] MEDS: TAMSULOSIN 0.4 MG CAP.ER.24H PO SCH (07:53)
[2021-01-25 07:54] VITALS: BP 114/77
[2021-01-25] MEDS: INSULIN GLARGINE 100 UNITS/ML, PEN SQ-INSULIN SCH ×2 (10:17→21:13)
[2021-01-25 10:19] LABS: MEAN CORPUSCULAR HEMOGLOBIN 28.2 pg (27.5-34.5); MEAN CORPUSCULAR HGB CONC 32.3 g/dL (33.2-36.2); MEAN PLATELET VOLUME 8.8 fL (7.4-10.4); PLATELET COUNT 412 x10^3/uL (130-400); RED BLOOD COUNT 3.72 x10^6/uL (4.38-5.82); RED CELL DISTRIBUTION WIDTH 14.8 % (9.4-14.8)
[2021-01-25 10:33] LABS: ALANINE AMINOTRANSFERASE 15 U/L (12-78); ALBUMIN 2.1 g/dL (3.4-5.0); ANION GAP 11 mmol/L (5-15); CALCIUM 7.9 mg/dL (8.5-10.1); CHLORIDE 94 mmol/L (98-107); CREATININE 2.16 mg/dL (0.7-1.3)
[2021-01-25 10:36] LABS: ALKALINE PHOSPHATASE 70 U/L (45-117); BILIRUBIN,TOTAL 0.6 mg/dL (0.2-1.0); TOTAL PROTEIN 6.5 g/dL (6.4-8.2)
[2021-01-25 11:02] LABS: BAND#(MANUAL) 0.27 x10^3/uL; BANDS%(MANUAL) 1 % (0-7); LYMPH#(MANUAL) 2.12 x10^3/uL (1-3.4); LYMPHS% (MANUAL) 8 % (22-44); METAMYELOCYTES# (MANUAL) 0.27 x10^3/uL (0-0); METAMYELOCYTES% (MANUAL) 1 % (0-1); MONOS#(MANUAL) 1.33 x10^3/uL (0.3-2.7); MONOS% (MANUAL) 5 % (2-9); SEG#(MANUAL) 22.53 x10^3/uL (1.8-6.8); SEGS% (MANUAL) 85 % (42-75)
[2021-01-25 11:03] LABS: <PLATELET ESTIMATE> INCREASED; ANISOCYTOSIS 1+; LARGE PLATELETS 1+; POLYCHROMASIA 1+
[2021-01-25 13:21] VITALS: BP 92/60
[2021-01-25] MEDS ORDERED: LACTATED RINGERS 1,000 ML IVBOLUS ONE (14:30)
[2021-01-25] MEDS: HEPARIN 5,000 UNITS/ML, 1ML SQ SCH (17:19)
[2021-01-25 20:19] VITALS: BP 117/71
[2021-01-25] MEDS: MEROPENEM 1 GM in SODIUM CHLORIDE 0.9% 100 ML IVPB SCH (21:00)
[2021-01-25] MEDS: ACETAMINOPHEN 325 MG TABLET PO PRN (23:12)
[2021-01-26 00:58] VITALS: BP 116/67
[2021-01-26] MEDS: HEPARIN 5,000 UNITS/ML, 1ML SQ SCH ×2 (01:47→07:55)
[2021-01-26 05:50] LABS: BASOPHILS % (AUTO) 0 % (0-1); EOSINOPHILS % (AUTO) 1 % (1-7); LYMPHOCYTES % (AUTO) 11 % (22-44); MEAN CORPUSCULAR HEMOGLOBIN 29.1 pg (27.5-34.5); MEAN CORPUSCULAR HGB CONC 33.7 g/dL (33.2-36.2); MONOCYTES % (AUTO) 9 % (2-9); NEUTROPHILS % (AUTO) 80 % (42-75); PLATELET COUNT 424 x10^3/uL (130-400); RED BLOOD COUNT 3.56 x10^6/uL (4.38-5.82); RED CELL DISTRIBUTION WIDTH 14.5 % (9.4-14.8)
[2021-01-26 06:03] LABS: ALBUMIN 2.1 g/dL (3.4-5.0); ANION GAP 8 mmol/L (5-15); CALCIUM 8.4 mg/dL (8.5-10.1); CHLORIDE 101 mmol/L (98-107)
[2021-01-26 06:07] LABS: ALANINE AMINOTRANSFERASE 12 U/L (12-78); ALKALINE PHOSPHATASE 76 U/L (45-117); BILIRUBIN,TOTAL 0.5 mg/dL (0.2-1.0); CREATININE 1.79 mg/dL (0.7-1.3); TOTAL PROTEIN 6.5 g/dL (6.4-8.2)
[2021-01-26 06:47] VITALS: BP 108/68
[2021-01-26] MEDS: TAMSULOSIN 0.4 MG CAP.ER.24H PO SCH (07:55)
[2021-01-26] MEDS: INSULIN LISPRO 100 UNITS/ML, PEN SQ-INSULIN SCH ×4 (08:01→20:46)
[2021-01-26] MEDS: INSULIN GLARGINE 100 UNITS/ML, PEN SQ-INSULIN SCH ×2 (10:53→20:46)
[2021-01-26] MEDS: MEROPENEM 1 GM in SODIUM CHLORIDE 0.9% 100 ML IVPB SCH ×2 (10:56→20:23)
[2021-01-26 12:24] VITALS: BP 123/75
[2021-01-26 12:38] LABS: MICROSCOPIC INDICATED
[2021-01-26] MEDS: METOPROLOL TARTRATE 25 MG TAB PO SCH (18:10)
[2021-01-26 19:54] VITALS: BP 121/77
[2021-01-26] MEDS: APIXABAN 5 MG TABLET PO SCH (20:23)
[2021-01-27 03:15] VITALS: BP 160/84
[2021-01-27] MEDS: ACETAMINOPHEN 325 MG TABLET PO PRN (03:27)
[2021-01-27 05:25] VITALS: BP 134/78
[2021-01-27] MEDS: METOPROLOL TARTRATE 25 MG TAB PO SCH (05:33)
[2021-01-27 06:27] LABS: BASOPHILS % (AUTO) 1 % (0-1); EOSINOPHILS % (AUTO) 0 % (1-7); LYMPHOCYTES % (AUTO) 11 % (22-44); MEAN CORPUSCULAR HEMOGLOBIN 29.4 pg (27.5-34.5); MEAN CORPUSCULAR HGB CONC 33.8 g/dL (33.2-36.2); MEAN PLATELET VOLUME 8.6 fL (7.4-10.4); MONOCYTES % (AUTO) 9 % (2-9); NEUTROPHILS % (AUTO) 78 % (42-75); PLATELET COUNT 495 x10^3/uL (130-400); RED BLOOD COUNT 3.71 x10^6/uL (4.38-5.82); RED CELL DISTRIBUTION WIDTH 14.9 % (9.4-14.8)
[2021-01-27 06:38] LABS: ALBUMIN 2.1 g/dL (3.4-5.0); ANION GAP 6 mmol/L (5-15); CALCIUM 8.6 mg/dL (8.5-10.1); CHLORIDE 103 mmol/L (98-107)
[2021-01-27 06:42] LABS: ALANINE AMINOTRANSFERASE 15 U/L (12-78); ALKALINE PHOSPHATASE 76 U/L (45-117); BILIRUBIN,TOTAL 0.4 mg/dL (0.2-1.0); CREATININE 0.93 mg/dL (0.7-1.3); TOTAL PROTEIN 7.2 g/dL (6.4-8.2)
[2021-01-27] MEDS: APIXABAN 5 MG TABLET PO SCH (07:43)
[2021-01-27] MEDS: TAMSULOSIN 0.4 MG CAP.ER.24H PO SCH (07:43)
[2021-01-27] MEDS: INSULIN LISPRO 100 UNITS/ML, PEN SQ-INSULIN SCH ×3 (07:48→15:51)
[2021-01-27] MEDS: INSULIN GLARGINE 100 UNITS/ML, PEN SQ-INSULIN SCH (07:49)
[2021-01-27 07:52] VITALS: BP 135/83
[2021-01-27] MEDS ORDERED: FINASTERIDE 5 MG TABLET PO SCH (10:00)
[2021-01-27] MEDS ORDERED: MEROPENEM 1 GM in SODIUM CHLORIDE 0.9% 100 ML IV SCH (10:00)
[2021-01-27 12:52] VITALS: BP 130/76
[2021-01-27] MEDS ORDERED: FINA5TAB4 PO (13:48)
[2021-01-27] MEDS ORDERED: INSU100I13 SQ-INSULIN (13:48)
[2021-01-27] MEDS ORDERED: APIX5TAB PO (13:48)
[2021-01-27] MEDS ORDERED: APIX5TAB4 PO (13:48)
[2021-01-27] MEDS ORDERED: INSU100I11 SQ-INSULIN (13:48)
[2021-01-27] MEDS ORDERED: MERO1VIA24 IV (13:48)
[2021-01-27] MEDS ORDERED: METO25TA35 PO (13:48)
[2021-01-27] MEDS ORDERED: TAMS-11 PO (13:48)
[2021-01-27] MEDS ORDERED: ACET325T26 PO (13:48)
[2021-01-27] MEDS ORDERED: METOPROLOL TARTRATE 25 MG TAB PO SCH (18:00)
== END 2021-01-27 16:13 | DRG 871 ==
LOC: ED 18:38 → SUATTDRO 20:38 → EDIP 21:29 → CCU 01-16 11:58 → 4NW 01-17 16:55 → 4NE 01-18 13:27 → 4NW 01-18 13:27 → 4NE 01-22 13:31 → 5SO 01-24 18:09
PROVIDERS: ADMIT Internal Medicine; ATTEND Internal Medicine
PROC: 0T9B30Z Drainage of Bladder with Drainage Device, Percutaneous Approach (ICD-10-PCS; 2021-01-16)
PROC: 02HV33Z Insertion of Infusion Device into Superior Vena Cava, Percutaneous Approach (ICD-10-PCS; principal; 2021-01-24)
PROC: B5181ZA Fluoroscopy of Superior Vena Cava using Low Osmolar Contrast, Guidance (ICD-10-PCS; 2021-01-24)
PROC: B548ZZA Ultrasonography of Superior Vena Cava, Guidance (ICD-10-PCS; 2021-01-24)
DX: A41.9 Sepsis, unspecified organism (principal); E11.10 Type 2 diabetes mellitus with ketoacidosis without coma; E43 Unspecified severe protein-calorie malnutrition; G92 Toxic encephalopathy; I26.99 Other pulmonary embolism without acute cor pulmonale; N17.0 Acute kidney failure with tubular necrosis; N13.6 Pyonephrosis; N02.9 Recurrent and persistent hematuria with unspecified morphologic changes; M48.54XA Collapsed vertebra, not elsewhere classified, thoracic region, initial encounter for fracture; D64.9 Anemia, unspecified; E11.22 Type 2 diabetes mellitus with diabetic chronic kidney disease; E87.6 Hypokalemia; H91.91 Unspecified hearing loss, right ear; K52.9 Noninfective gastroenteritis and colitis, unspecified; M48.04 Spinal stenosis, thoracic region; M48.061 Spinal stenosis, lumbar region without neurogenic claudication; R65.20 Severe sepsis without septic shock; R62.7 Adult failure to thrive; R33.8 Other retention of urine; N41.9 Inflammatory disease of prostate, unspecified; N32.0 Bladder-neck obstruction; N40.1 Benign prostatic hyperplasia with lower urinary tract symptoms; N18.2 Chronic kidney disease, stage 2 (mild); Z91.19 Patient's noncompliance with other medical treatment and regimen; Z79.899 Other long term (current) drug therapy
CPT/HCPCS: 36415; 36573; 71045; 72158; 74178; 76770; 78582; 80048; 80053; 81001; 82010; 82040; 82330; 82570; 82803; 82947; 82962; 83605; 83735; 83880; 84100; 84132; 84153; 84156; 84300; 84443; 84484; 85014; 85018; 85025; 85379; 85651; 87040; 87046; 87081; 87086; 87106; 89055; 93005; 93306; 96360; 96361; 99285; G0378; J0610; J0696; J1644; J1815; J2185; J3480; J7070; Q9967; U0005; A9540; A9558; A9575; C1751; G0103; J3475; J7030; J7050; J7120; U0003